=== PATIENT | female | born 1960 | race American Indian/Alaskan Native ===

== ENCOUNTER 2022-03-13 15:18 | Emergency (ER) | payer MEDICARE ==
[2022-03-13] MEDS ORDERED: IBUPROFEN 600 MG TAB PO ONE (21:03)
[2022-03-13] MEDS ORDERED: traMADol 50 MG TAB PO ONE (21:03)
[2022-03-13] MEDS ORDERED: DOXYCYCLINE 100 MG CAP PO ONE (21:03)
--- NOTE | 2022-03-13 21:51 | Emergency Department Report ---
ED General Adult HPI - General Chief complaint: Sore Throat Stated complaint: SORE THROAT Source: patient Mode of arrival: Ambulatory Limitations: No Limitations - History of Present Illness Initial comments: Patient is a 62-year-old -[place] female with a history of hypertension, [id number] diabetes and hypothyroidism who presents to the ED with complaint of acute onset persistent painful swollen itchy right cheek and chin maculopapular rashes, sore throat and left maxillary gingival pain and swelling and premolar and molar tooth ache for the last 1 week. Patient states that the pain has been constant and persistent and that in the last 3 days she has not been able to eat because of pain. Patient denies dizziness, syncope, fever, chills, traumatic injury, chest pain or shortness of breath, headache, change in vision, change in speech, tongue swelling, dysphagia, dysphonia, neck pain or cough. MD Complaint: dental pain; facial rash; sore throat -: Gradual, week(s) (1) Location: face, mouth Radiation: non-radiation Severity scale (0 -10): 4 Quality: burning, aching, sharp Consistency: constant Improves with: none Worsens with: none Associated Symptoms: denies other symptoms, rash (right cheek itchy painful rashes). denies: confusion, chest pain, cough, diaphoresis, fever/chills, headaches, loss of appetite, malaise, seizure, shortness of breath, syncope, weakness Treatments Prior to Arrival: none - Related Data Home Medications Medication Instructions Recorded Confirmed Last Taken metFORMIN [Glucophage] 500 mg PO BID 08/31/15 08/31/15 08/31/15 Previous Rx's Medication Instructions Recorded Last Taken Type Fluticasone [Flonase] 1 spray NS QDAY #1 bottle 09/01/14 Unknown Rx Levothyroxine [Synthroid] 25 mcg PO QAM #30 tablet 09/01/14 08/31/15 Rx Promethazine /Codeine 5 ml PO Q6H PRN #45 ml 09/01/14 08/31/15 Rx [Phenergan/Codeine 6.25-10 mg/5 ml] Spironolactone [Aldactone] 25 mg PO DAILY #30 tablet 09/01/14 08/31/15 Rx Azithromycin [Zithromax Z-SHINE] 250 mg PO DAILY #1 pack 08/31/15 Unknown Rx Tobramycin 0.3% [Tobrex] 1 drop OU Q6H #1 bottle 12/27/15 Unknown Rx Mupirocin [Bactroban 2%] 1 applic TP TID #1 tube 03/05/16 Unknown Rx Sulfamethoxazole/Trimethoprim 1 each PO BID #20 tablet 03/05/16 Unknown Rx [Bactrim DS TAB] Clindamycin [Clindamycin CAP] 300 mg PO Q6H #40 cap 03/13/22 Unknown Rx Empagliflozin [Jardiance] 25 mg PO DAILY #30 tab 03/13/22 Unknown Rx Ibuprofen [Motrin] 800 mg PO Q8HR PRN #30 tablet 03/13/22 Unknown Rx traMADoL [Ultram] 50 mg PO Q6HR PRN #12 tablet 03/13/22 Unknown Rx Allergies Allergy/AdvReac Type Severity Reaction Status Date / Time No Known Allergies Allergy Unverified 06/26/14 12:14 ED Review of Systems ROS: Stated complaint: SORE THROAT Other details as noted in HPI Constitutional: denies: chills, fever Eyes: denies: eye pain, eye discharge, vision change ENT: throat pain, dental pain (left maxillary gingival swelling and pain; painful left maxillary premolar and molar teeth). denies: ear pain Respiratory: denies: cough, shortness of breath, wheezing Cardiovascular: denies: chest pain, palpitations Endocrine: no symptoms reported Gastrointestinal: denies: abdominal pain, nausea, vomiting, diarrhea Genitourinary: denies: urgency, dysuria, discharge Musculoskeletal: denies: back pain, joint swelling, arthralgia Skin: rash (mildly erythematous rashes on right cheek ), change in color. denies: lesions, change in hair/nails, pruritus, other Neurological: denies: headache, weakness, paresthesias Psychiatric: denies: anxiety, depression Hematological/Lymphatic: denies: easy bleeding, easy bruising ED Past Medical Hx - Past Medical History Hx Hypertension: Yes Hx Diabetes: Yes Additional medical history: hypothyroid - Surgical History Past Surgical History?: No - Social History Smoking Status: Current Every Day Smoker Substance Use Type: None - Medications Home Medications: Home Medications Medication Instructions Recorded Confirmed Last Taken Type Fluticasone [Flonase] 1 spray NS QDAY #1 bottle 09/01/14 Unknown Rx Levothyroxine [Synthroid] 25 mcg PO QAM #30 tablet 09/01/14 08/31/15 Rx Promethazine /Codeine 5 ml PO Q6H PRN #45 ml 09/01/14 08/31/15 Rx [Phenergan/Codeine 6.25-10 mg/5 ml] Spironolactone [Aldactone] 25 mg PO DAILY #30 tablet 09/01/14 08/31/15 Rx Azithromycin [Zithromax Z-SHINE] 250 mg PO DAILY #1 pack 08/31/15 Unknown Rx metFORMIN [Glucophage] 500 mg PO BID 08/31/15 08/31/15 08/31/15 History Tobramycin 0.3% [Tobrex] 1 drop OU Q6H #1 bottle 12/27/15 Unknown Rx Mupirocin [Bactroban 2%] 1 applic TP TID #1 tube 03/05/16 Unknown Rx Sulfamethoxazole/Trimethoprim 1 each PO BID #20 tablet 03/05/16 Unknown Rx [Bactrim DS TAB] Clindamycin [Clindamycin CAP] 300 mg PO Q6H #40 cap 03/13/22 Unknown Rx Empagliflozin [Jardiance] 25 mg PO DAILY #30 tab 03/13/22 Unknown Rx Ibuprofen [Motrin] 800 mg PO Q8HR PRN #30 tablet 03/13/22 Unknown Rx traMADoL [Ultram] 50 mg PO Q6HR PRN #12 tablet 03/13/22 Unknown Rx ED Physical Exam - General Limitations: No Limitations General appearance: alert, in no apparent distress - Head Head exam: Present: atraumatic, normocephalic, normal inspection - Eye Eye exam: Present: normal appearance, PERRL, EOMI - ENT ENT exam: Present: mucous membranes moist, TM's normal bilaterally, normal external ear exam, other (Mild erythematous oropharynx and tonsils; no peritonsillar abscess; multiple erythematous maculopapular rashes on right cheek and right chin) - Neck Neck exam: Present: normal inspection, full ROM. Absent: tenderness - Respiratory Respiratory exam: Present: normal lung sounds bilaterally. Absent: respiratory distress, wheezes, rales, stridor, chest wall tenderness, accessory muscle use, decreased breath sounds, prolonged expiratory - Cardiovascular Cardiovascular Exam: Present: regular rate, normal rhythm, normal heart sounds. Absent: systolic murmur, diastolic murmur, rubs, gallop - GI/Abdominal GI/Abdominal exam: Present: soft, normal bowel sounds. Absent: distended, tenderness, guarding, rebound, hyperactive bowel sounds, hypoactive bowel sounds, organomegaly - Extremities Exam Extremities exam: Present: normal inspection, full ROM, normal capillary refill. Absent: tenderness - Back Exam Back exam: Present: normal inspection, full ROM. Absent: tenderness, CVA tenderness (R), CVA tenderness (L), muscle spasm, paraspinal tenderness, vertebral tenderness - Neurological Exam Neurological exam: Present: alert, oriented X3, CN II-XII intact, normal gait, reflexes normal - Psychiatric Psychiatric exam: Present: normal affect, normal mood - Skin Skin exam: Present: warm, dry, intact, rash (Mild erythematous maculopapular rashes on right cheek and right chin exam with localized tenderness), erythema. Absent: normal color, urticaria, vesicles, petechiae, pallor, ecchymosis ED Course Vital Signs 03/13/22 15:55 Temperature 99 F Pulse Rate 97 H Respiratory 18 Rate Blood Pressure 162/82 [Right] O2 Sat by Pulse 100 Oximetry ED Medical Decision Making - Medical Decision Making This is a 62-year-old -[place] female with a history of hypertension, [id number] diabetes and hypothyroidism who presents to the ED with complaint of acute onset persistent painful swollen itchy right cheek and chin maculopapular rashes, sore throat and left maxillary gingival pain and swelling and premolar and molar tooth ache for the last 1 week. Patient states that the pain has been constant and persistent and that in the last 3 days she has not been able to eat because of pain. In the ED, patient is alert and oriented x3 and is not in any distress. Patient was treated for pain in the ED and also given initial oral antibiotics. Patient was discharged home on medications for pain and advised to follow-up with her primary care physician in 7 to 10 days for reevaluation. Patient advised return to the ED immediately if symptoms get worse. - Differential Diagnosis Dental abscess; gingivitis; folliculitis; pharyngitis Critical care attestation.: If time is entered above; I have spent that time in minutes in the direct care of this critically ill patient, excluding procedure time. ED Disposition Clinical Impression: Acute gingivitis, Acute folliculitis, Acute bacterial pharyngitis, Dental abscess Disposition: 01 HOME / SELF CARE / HOMELESS Is pt being admited?: No Does the pt Need Aspirin: No Condition: Stable Instructions: Skin Abscess, [id number], Pharyngitis, [id number], Sore Throat, [id number], Dental Abscess, [id number], Folliculitis Additional Instructions: Take medication with food, drink plenty of fluids, follow-up with your primary care physician in 7 to 10 days for reevaluation. Return to the ED immediately if symptoms get worse. Prescriptions: Clindamycin [Clindamycin CAP] 300 mg PO Q6H #40 cap Empagliflozin [Jardiance] 25 mg PO DAILY #30 tab Ibuprofen [Motrin] 800 mg PO Q8HR PRN #30 tablet PRN Reason: psain traMADoL [Ultram] 50 mg PO Q6HR PRN #12 tablet PRN Reason: Pain Referrals: [facility] [Provider Group] - 7-10 days Time of Disposition: 21:54 Print Language: [id number]
[2022-03-13 23:34] VITALS: BP 101/68
== END 2022-03-13 23:34 | disposition home or self-care (01) ==
LOC: ED 15:18
DX: K05.00 Acute gingivitis, plaque induced (principal); L66.2 Folliculitis decalvans; J02.9 Acute pharyngitis, unspecified; K04.7 Periapical abscess without sinus; F17.200 Nicotine dependence, unspecified, uncomplicated
CPT/HCPCS: 99282